=== PATIENT | male | born 1980 | race Caucasian/White ===

== ENCOUNTER 2016-11-17 07:50 | Day surgery (SDC) | payer BC, OTHER ==
[2016-11-15 12:31] VITALS: BMI 26.3
[~2016-11-17 07:50] MED LIST: SODIUM CHLORIDE 0.9% 1,000 ML IV SCH
[2016-11-17] MEDS ORDERED: SODIUM CHLORIDE 0.9% 500 ML IV ONE (08:10)
[2016-11-17 08:17] VITALS: BP 144/80; PULSE 70; RESP 16; TEMP 98.2
--- NOTE | 2016-11-17 16:05 | P.PCN ---
Preoperative Diagnosis: Twelve-lead ECG shows sinus mechanism normal TX narrow shows early repolarization abnormality noted Tilt table test Possible mild orthostatic intolerance
--- NOTE | 2016-11-17 16:29 | CE ---
DATE OF SERVICE: This is a 36-year-old male patient followed by Dr. Banks and Dr. Pfeiffer for a tilt table test. Baseline blood pressure 143/82 mmHg. Baseline heart rate 75 beats a minute. The patient was tilted upright at an angle of 70 degrees per protocol. There was no significant change in his blood pressure; however, there was an increase in heart rate to about 100 beats a minute in the first 10 minutes. Subsequently peak heart rate was 110 beats a minute. He had warm sensation at that time. Blood pressure was normal. He was laid supine at the end of the procedure. IMPRESSION: Possible mild orthostatic intolerance. No evidence for neurocardiogenic syncope.
== END 2016-11-17 09:46 | disposition home or self-care (01) ==
LOC: CATHEP 07:50
PROVIDERS: ATTEND Internal Medicine Clinical Cardiac Electrophysiology
DX: R55 Syncope and collapse (principal); Z88.0 Allergy status to penicillin
CPT/HCPCS: 93005; 93660